=== PATIENT | male | born 1945 | race Caucasian/White ===

== ENCOUNTER → 2017-03-28 | Emergency (ER) | payer OTHER ==
--- NOTE | 2017-03-28 15:19 | NUR ---
PT CHANGED HIS MIND ABOUT SEEING MD. REMARKED THAT HE HAD SUCCESSFULLY REDUCED HIS HERNIA HIMSELF AND DECIDED TO GO HOME..
== END | disposition home or self-care (01) ==
LOC: ER 14:54
DX: Z53.21 Procedure and treatment not carried out due to patient leaving prior to being seen by health care provider (principal)